=== PATIENT | female | born 1975 | race Caucasian/White ===

== ENCOUNTER 2019-10-06 12:27 | Outpatient (CLI) | payer BC, SELFPAY ==
--- NOTE | 2019-10-10 14:27 | WPDPFTINT ---
PFT Interpretation PFT Interpretation: This PFT met all criteria for ATS standards and reproducibility FEV/FVC 78%, no bronchodilator challenge was given FEV1 109% FVC 109% TLC 110% RV 108% RV/TLC 34% DLCO 86% when adjusted for alveolar volume but not adjusted for hemoglobin Flow volume loops were normal Impression: Normal PFT. Clinical correlation is advised.
== END 2019-10-06 12:28 | disposition home or self-care (01) ==
PROVIDERS: PCP Nurse Practitioner Adult Health; Visit Provider Nurse Practitioner Adult Health
DX: F17.200 Nicotine dependence, unspecified, uncomplicated (principal)
CPT/HCPCS: 94375; 94726; 94729

== ENCOUNTER 2019-10-28 12:19 | Outpatient (CLI) | payer BC, SELFPAY ==
--- NOTE | ~2019-10-28 | MM_ITS ---
EXAMINATION: MM diagnostic gay BI w thomas HISTORY: Left breast pain TECHNIQUE: Additional 3-D tomosynthesis images of the left breast were performed and synthetic 2-D im ages were generated. CAD analysis was submitted and interpreted. COMPARISON: Comparison to multiple prior studies sequentially, with oldest reviewed study dated 02/2011. FINDINGS: Breast composed of scattered areas of fibroglandular density. Asymmetric density in the rig ht breast in the lower outer quadrant are stable. No new masses, calcifications or architectural dist ortion to suggest malignancy. IMPRESSION: 1. No mammographic evidence for malignancy in either breast. 2. Routine yearly screening mammogram and regular clinical breast examination are recommended. BI-RADS Category 1: Negative Reviewed, dictated and finalized at location A. IMPRESSION: 1. No mammographic evidence for malignancy in either breast. 2. Routine yearly screening mammogram and regular clinical breast examination a re recommended. BI-RADS Category 1: Negative
== END 2019-10-28 12:20 | disposition home or self-care (01) ==
LOC: ANHIMG 12:22
PROVIDERS: PCP Nurse Practitioner Adult Health; Visit Provider Nurse Practitioner
DX: N64.4 Mastodynia (principal)
CPT/HCPCS: 77062; 77066; G0279

== ENCOUNTER 2020-10-02 14:26 | Outpatient (CLI) | payer BC, SELFPAY | END 2020-10-02 14:27 | disposition home or self-care (01) | LOC: ANHCOVIDVC 14:26 | PROVIDERS: PCP Nurse Practitioner Adult Health | DX: Z23 Encounter for immunization (principal) | CPT/HCPCS: 0001A; 91300 ==

== ENCOUNTER 2020-10-23 13:43 | Outpatient (CLI) | payer BC, SELFPAY | END 2020-10-23 13:44 | disposition home or self-care (01) | LOC: ANHCOVIDVC 13:44 | PROVIDERS: PCP Nurse Practitioner Adult Health | DX: Z23 Encounter for immunization (principal) | CPT/HCPCS: 0002A; 91300 ==

== ENCOUNTER 2020-11-21 16:54 | Outpatient (CLI) | payer BC, SELFPAY ==
--- NOTE | ~2020-11-21 | MM_ITS ---
EXAMINATION: MM screening [facility] BI w thomas HISTORY: Screening TECHNIQUE: Craniocaudal and mediolateral oblique 3-D tomosynthesis images were obtained and synthetic 2-D images were generated. CAD analysis was submitted and interpreted. COMPARISON: Comparison to multiple prior studies sequentially, with oldest reviewed study dated 04/24. BREAST PARENCHYMAL COMPOSITION: There are scattered areas of fibroglandular density. FINDINGS: There is no evidence of suspicious mass, calcification, or architectural distortion to sugg est malignancy in either breast. There has been no suspicious interval change. IMPRESSION: 1. No mammographic evidence of malignancy. 2. Recommend routine screening mammography in one year. BI-RADS Category 1: Negative Reviewed, dictated and finalized at location A.
== END 2020-11-21 16:55 | disposition home or self-care (01) ==
PROVIDERS: PCP Nurse Practitioner Adult Health; Visit Provider Obstetrics & Gynecology Gynecology
DX: Z12.31 Encounter for screening mammogram for malignant neoplasm of breast (principal)
CPT/HCPCS: 77063; 77067

== ENCOUNTER → 2021-04-02 09:55 | Outpatient (CLI) | payer BC, SELFPAY ==
--- NOTE | ~2021-04-02 | US_ITS ---
EXAMINATION: US venous doppler [facility] DATE: 04/02/2021 10:35 INDICATION: Left lower limb pain TECHNIQUE: Grayscale ultrasound images without and with compression and Doppler ultrasound images of the left lower extremity veins were obtained. COMPARISON: None. FINDINGS: The visualized portions of left common femoral vein, profunda (deep) femoral vein, femoral vein, popl iteal vein, peroneal veins, posterior tibial veins, gastrocnemius vein and greater saphenous vein out flow are patent. A small patent and compressible superficial varicose vein is seen at the region of p ain. No abnormal masses or fluid collections identified at the region of concern. IMPRESSION: 1. No deep venous thrombosis in the left lower limb. Reviewed, dictated and finalized at location A.
== END ==
PROVIDERS: PCP Nurse Practitioner Adult Health; Visit Provider Nurse Practitioner Adult Health
DX: M79.605 Pain in left leg (principal)
CPT/HCPCS: 93971

== ENCOUNTER 2021-06-27 07:36 | Emergency (ER) | payer BC, SELFPAY ==
[2021-06-27] VITALS (9 sets, daily range): BP systolic 104–123; BP diastolic 65–86; PULSE 65–112; RESP 11–20; TEMP 36.6–37.1; O2SAT 100
[2021-06-27 08:25] LABS: Add Urine Microscopic? YES; Appearance Urine Clear (Clear); Bacteria Urine Trace /hpf; Bilirubin Urine Negative (Negative); Blood Urine 1+ (Negative); Color Urine Yellow (Yellow); Glucose Urine UA Negative (Negative); Ketones Urine Negative (Negative); Leukocyte Esterase Ur Trace LEU/UL (Negative); Mucus Urine Rare /lpf; Nitrate Urine Negative (Negative); Protein Urine Negative (Negative); Specific Grav Ur 1.017 (1.001-1.035); Squamous Epithelial Cell Urine Few /hpf (Few); Urobilinogen Urine Negative mg/dL (<2.0)
[2021-06-27 08:43] LABS: Basophils Percent Auto 0.3 % (0.2-1.2); Eosinophils Absolute Auto 0.1 K/mm3 (0-0.3); Eosinophils Percent Auto 0.5 % (0-4.4); Hematocrit 40.1 % (37.0-47.0); Hemoglobin 13.1 g/dL (12.0-15.0); Immature Granulocyte Absolute 0.05 K/mm3 (0.00-0.031); Immature Granulocyte Percent A 0.5 % (0-0.5); Lymphocytes Absolute Auto 0.94 K/mm3 (0.9-3.2); Lymphocytes Percent Auto 8.7 % (18.3-44.2); Mean Corpuscular HGB Conc 32.7 g/dl (32-36); Mean Corpuscular Hemoglobin 29.3 pg (26-34); Mean Corpuscular Volume 89.7 fl (80-100); Mean Platelet Volume 9.7 fl (7.4-10.4); Monocytes Absolute Auto 1.2 K/mm3 (0.1-0.6); Monocytes Percent Auto 11.4 % (2.6-8.5); Neutrophils Absolute Auto 8.5 K/mm3 (1.3-6.7); Neutrophils Percent Auto 78.6 % (45.5-73.1); Platelet Count Result 240 k/mm3 (150-375); Red Blood Count 4.47 M/mm3 (4.2-5.4); White Blood Count 10.8 K/mm3 (4.5-10.0)
[2021-06-27 08:51] LABS: Alanine Aminotransferase 14 U/L (4-35); Albumin Level 4.2 g/dL (3.5-5.1); Alkaline Phosphatase 60 U/L (38-126); Anion Gap 11 mmol/L (8-16); Aspartate Amino Transferase 19 U/L (14-36); Bilirubin,Total 0.4 mg/dL (0.2-1.3); Blood Urea Nitrogen 11 mg/dL (7-17); Calcium 9.5 mg/dL (8.4-10.2); Carbon Dioxide 25 mmol/L (22-30); Chloride 100 mmol/L (98-107); Estimated CRCL calculation 79 ml/min; Estimated Glomerular Filt Rate > 60; Glucose 100 mg/dL (65-110); Potassium 4.5 mmol/L (3.4-5.0); Sodium 136 mmol/L (137-145)
--- NOTE | 2021-06-27 11:42 | ED.GENADULT ---
HPI - General Adult General Chief complaint: Upper Respiratory Infection Stated complaint: fever,dizzy,chills,body aches Time Seen by Provider: 06/27/21 07:54 History of Present Illness HPI narrative: Patient is a 45-year-old female who presents ER with multiple complaints. Reports over the last 4 days she been having body aches and mild headache. She has had some achiness in her neck. She has had occasional dizziness when going from sitting to standing. She reports fever and chills. No known sick contacts. Reports she typically feels like this when she has UTI. No urinary frequency urgency. She has had some mild cough and shortness of breath with walking. Related Data Home Medications Medication Instructions Recorded Confirmed alprazolam 0.5 mg PO HS 06/27/21 06/27/21 omeprazole 20 mg PO DAILY 06/27/21 06/27/21 phentermine 37.5 mg PO DAILY 06/27/21 06/27/21 Allergies Allergy/AdvReac Type Severity Reaction Status Date / Time No Known Allergies Allergy Unverified 06/27/21 07:52 Review of Systems Constitutional: Constitutional: Reports chills, Reports fatigue and Reports fever(s) ENT: Denies nasal congestion and Denies sore throat Respiratory: Respiratory: Denies chest congestion, Reports cough, Reports dyspnea and Denies wheezing Gastrointestinal: Gastrointestinal: Denies abdominal pain, Denies nausea and Denies vomiting Genitourinary: Genitourinary: Denies hematuria, Denies nocturia and Denies dysuria PMFSH Past Medical History Medical History (Updated 06/27/21 @ 12:13 by Mahamed Maya MD) Anxiety Surgical History Surgical History (Updated 06/27/21 @ 11:44 by Mahamed Maya MD) History of tonsillectomy Social History Social History (Updated 06/27/21 @ 11:44 by Mahamed Maya MD) Smoking status: Never smoker Exam Narrative: GENERAL: Well-appearing, well-nourished, and in no acute distress. HEAD: Normocephalic, atraumatic. NECK: Supple. FROM without meningismus. CHEST: Clear to auscultation. No respiratory distress. HEART: Regular rate and rhythm. Normal peripheral pulses. ABDOMEN: Soft, nontender, nondistended. EXTREMITIES: Normal range of motion. No edema. NEURO: Alert and oriented x3. PSYCH: Normal mood and affect. Course Course Emergency Course: Put patient on short course of antibiotics for UTI. Normal orthostatics. Patient also swabbed for Covid. Discharge home. Vital Signs Vital signs: Vital Signs Temperature 98.7 F 06/27/21 07:41 Pulse Rate 91 06/27/21 07:41 Respiratory Rate 20 06/27/21 07:41 Blood Pressure 123/71 06/27/21 07:41 Pulse Oximetry 100 06/27/21 07:41 Temperature 98.7 F 06/27/21 07:41 Pulse Rate 67 06/27/21 10:44 Respiratory Rate 13 06/27/21 10:44 Blood Pressure 104/65 06/27/21 10:44 Pulse Oximetry 100 06/27/21 10:44 Medical Decision Making Vital Signs Vital Signs: Vital Signs Temperature 98.7 F 06/27/21 07:41 Pulse Rate 91 06/27/21 07:41 Respiratory Rate 20 06/27/21 07:41 Blood Pressure 123/71 06/27/21 07:41 Pulse Oximetry 100 06/27/21 07:41 Temperature 98.7 F 06/27/21 07:41 Pulse Rate 67 06/27/21 10:44 Respiratory Rate 13 06/27/21 10:44 Blood Pressure 104/65 06/27/21 10:44 Pulse Oximetry 100 06/27/21 10:44 Lab Data Result diagrams: 06/27/21 08:26 06/27/21 08:26 Labs: Lab Results 06/27/21 06/27/21 06/27/21 Range/Units 08:06 08:26 08:26 WBC 10.8 H (4.5-10.0) K/mm3 RBC 4.47 (4.2-5.4) M/mm3 Hgb 13.1 (12.0-15.0) g/dL Hct 40.1 (37.0-47.0) % MCV 89.7 (80-100) fl MCH 29.3 (26-34) pg MCHC 32.7 (32-36) g/dl RDW 13.0 (11.5-14.5) % Plt Count 240 (150-375) k/mm3 MPV 9.7 (7.4-10.4) fl Immature Gran % (Auto) 0.5 (0-0.5) % Neut % (Auto) 78.6 H (45.5-73.1) % Lymph % (Auto) 8.7 L (18.3-44.2) % Shannon % (Auto) 11.4 H (2.6-8.5) % Eos % (Auto) 0.5 (0-4.4) % Ba
[2021-06-27 20:49] LABS: SARS-CoV-2 RNA PCR Negative
== END 2021-06-27 12:25 | disposition home or self-care (01) ==
PROVIDERS: Emergency Provider Emergency Medicine; PCP Nurse Practitioner Adult Health
DX: N39.0 Urinary tract infection, site not specified (principal); Z20.822 Contact with and (suspected) exposure to COVID-19; F41.9 Anxiety disorder, unspecified
CPT/HCPCS: 36415; 80053; 81001; 85025; 87077; 87086; 87186; 99283; C9803; U0003; U0005

== ENCOUNTER 2022-01-16 07:34 | Outpatient (CLI) | payer BC, SELFPAY ==
--- NOTE | ~2022-01-16 | MM_ITS ---
EXAMINATION: MM screening gay BI w thomas HISTORY: Screening mammogram TECHNIQUE: Craniocaudal and mediolateral oblique 3-D tomosynthesis images were obtained and synthetic 2-D images were generated. CAD analysis was submitted and interpreted. COMPARISON: 11/21/2020 bilateral screening mammogram 10/28/2019 bilateral diagnostic mammogram BREAST PARENCHYMAL COMPOSITION: There are scattered areas of fibroglandular density. FINDINGS: Grouped microcalcifications are noted in the upper outer quadrant of left breast breast, of particular concern because of linear branching configuration of the mammographic calcifications (MLO Tomosynthesis image 12/50). Differential diagnosis includes arterial calcification. There is a linear array of subtle microcalcifications in the outer mid right breast, also of concern (MLO Tomosynthesis image 13/51). Bilateral diagnostic mammography is recommended, with ultrasound as well. IMPRESSION: 1. Grouped microcalcifications in the upper-outer quadrant left breast and outer mid right breast 2. Bilateral diagnostic mammography and breast ultrasound examination are recommended. BI-RADS Category 0: Incomplete: Needs additional imaging evaluation. Reviewed, dictated and finalized at location A. IMPRESSION: 1. Grouped microcalcifications in the upper-outer quadrant left breast and oute r mid right breast 2. Bilateral diagnostic mammography and breast ultrasound examination are recom mended. BI-RADS Category 0: Incomplete: Needs additional imaging evaluation.
== END 2022-01-16 07:35 | disposition home or self-care (01) ==
LOC: ANHIMG 07:36
PROVIDERS: PCP Nurse Practitioner Adult Health; Visit Provider Obstetrics & Gynecology Gynecology
DX: Z12.31 Encounter for screening mammogram for malignant neoplasm of breast (principal); R92.8 Other abnormal and inconclusive findings on diagnostic imaging of breast
CPT/HCPCS: 77063; 77067

== ENCOUNTER 2022-01-29 11:54 | Outpatient (CLI) | payer BC, SELFPAY ==
--- NOTE | ~2022-01-29 | MM_ITS ---
EXAMINATION: MM diagnostic gay BI w thomas HISTORY: Indeterminate bilateral breast calcifications on screening mammogram TECHNIQUE: Magnification views of the breasts were performed. CAD analysis was submitted and interpre jabier. COMPARISON: 01/16/2022, 11/21/2020, 10/28/2019, 12/09/2016, 11/25/2016 BREAST PARENCHYMAL COMPOSITION: There are scattered areas of fibroglandular density. FINDINGS: Left breast: There are grouped fine pleomorphic calcifications in the posterior third of the upper ou ter quadrant of the breast at the 1:00 location 10 cm from the nipple. No definite associated mass is identified. Right breast: There are grouped calcifications in the posterior third of the outer breast at the 9:00 location 11 cm from the nipple which appear to be round in morphology. IMPRESSION: 1. Indeterminate left breast calcifications. Stereotactic biopsy is recommended. 2. Probably benign right breast calcifications. Follow-up right diagnostic mammogram in six months is recommended. BI-RADS category 4, suspicious findings. Reviewed, dictated and finalized at location A. IMPRESSION: 1. Indeterminate left breast calcifications. Stereotactic biopsy is recommended . 2. Probably benign right breast calcifications. Follow-up right diagnostic mamm ogram in six months is recommended. BI-RADS category 4, suspicious findings.
== END 2022-01-29 11:55 | disposition home or self-care (01) ==
PROVIDERS: PCP Nurse Practitioner Adult Health; Visit Provider Obstetrics & Gynecology Gynecology
DX: R92.8 Other abnormal and inconclusive findings on diagnostic imaging of breast (principal)
CPT/HCPCS: 77062; 77066; G0279

== ENCOUNTER 2022-03-07 11:02 | Outpatient (CLI) | payer BC, SELFPAY ==
--- NOTE | ~2022-03-07 | MM_ITS ---
EXAMINATION: MM stereotactic bx LT, MM post biopsy diagnostic LT, MM stereotactic specimen LT, Specim en Radiograph, Tissue Marker Clip Placement, Unilateral Mammogram DATE: 03/07/2022 12:52 (accession [id number]), 03/07/2022 12:51 (accession [id number]), 03/07 12:50 (accession [id number]) INDICATION: Abnormal mammogram: Fine pleomorphic grouped microcalcifications in the posterior third o f upper outer left breast at 1:00 10 cm from nipple. TECHNIQUE AND FINDINGS: The risks and potential benefits of the procedure were discussed with the patient and written informe d consent was obtained. Timeout procedure was performed. The patient was placed in the prone position on the dedicated stereotactic table with the left breast in craniocaudal compression, and the area o f interest was localized and targeted utilizing digital imaging with stereotaxis. After sterile preparation of the skin, 1% lidocaine was utilized for local anesthesia at the skin pun cture site and 1% lidocaine with epinephrine was utilized for deeper local anesthesia/is about the bi opsy site. A [employer] vacuum assisted biopsy needle was advanced to the level of the calcification o f interest from a cephalad approach utilizing stereotactic guidance and a total of 12 tissue core bio psies were obtained. A specimen radiograph demonstrates that the calcifications of interest are included within the tissue cores. A tissue marker clip was then placed at the biopsy site. A digital mammographic exposure co nfirmed the successful deployment of the biopsy marker. The needle was removed and hemostasis was ac hieved. A sterile bandage was applied. The patient tolerated the procedure well and there is no aisha dence of significant immediate complication. The patient was given verbal as well as written postpro cedural instructions prior to discharge from the department. Tissue cores were submitted to surgical pathology for histologic analysis. A 2-view left unilateral digital mammogram was obtained post procedure, demonstrating the tissue daylin er clip in expected position. IMPRESSION: 1. Successful stereotactic biopsy of grouped microcalcifications in posterior third of upper outer left breast, followed by tissue marker clip placement. Please refer to pathology report for histolog ic analysis. Reviewed, dictated and finalized at Location A. Reviewed, dictated and finalized at location A. IMPRESSION: 1. Successful stereotactic biopsy of grouped microcalcifications in posterior third of upper outer left breast, followed by tissue marker clip placement. P lease refer to pathology report for histologic analysis. IMPRESSION: 1. Successful stereotactic biopsy of grouped microcalcifications in posterior third of upper outer left breast, followed by tissue marker clip placement. P lease refer to pathology report for histologic analysis.
== END 2022-03-07 11:03 | disposition home or self-care (01) ==
PROVIDERS: PCP Nurse Practitioner Adult Health; Visit Provider Surgery
DX: R92.1 Mammographic calcification found on diagnostic imaging of breast (principal)
CPT/HCPCS: 19081; 77065; 88305; A4648

== ENCOUNTER 2022-09-05 13:23 | Outpatient (CLI) | payer BC, SELFPAY ==
--- NOTE | ~2022-09-05 | MMUS_ITS ---
MM diagnostic gay BI w thomas, US breast RT complete DATE: 09/05/2022 14:01 (accession [id number]), 09/05/2022 15:20 (accession [id number]) INDICATION: Six-month follow-up of pleomorphic calcifications in posterior mid outer right breast TECHNIQUE: Digital ML, MLO and CC Tomosynthesis views of both breasts. Magnification views of right b reast computer-aided detection was performed and reviewed. COMPARISON: 01/29/2022 bilateral diagnostic mammogram Breast protocol composition: There are scattered areas of fibroglandular density. MAMMOGRAM FINDINGS: As biopsy marker in the upper outer quadrant of the left breast; history of prior benign stereotactic biopsy of microcalcifications. There are some indeterminate grouped granular microcalcifications in linear array in the posterior ou ter mid right breast. The linear distribution is of concern. Stereotactic biopsy is recommended. No suspicious mass, architectural distortion, malignant calcification, skin thickening or retraction of either breast is noted otherwise. ULTRASOUND FINDINGS: Right breast 11:00 6 cm from nipple: Parallel circumscribed hypoechoic 5 x 4 x 5 mm solid lesion with out internal vascularity or posterior shadowing IMPRESSION: Indeterminate granular grouped microcalcifications in the posterior upper outer right larry ast. Stereotactic biopsy is recommended. Recommendation: Stereotactic biopsy of right breast microcalcifications BI-RADS Category 4: Suspicious abnormality; biopsy should be considered Reviewed, dictated and finalized at Location A. Reviewed, dictated and finalized at location A. IMPRESSION: Indeterminate granular grouped microcalcifications in the posterior upper outer right breast. Stereotactic biopsy is recommended. Recommendation: Stereotactic biopsy of right breast microcalcifications BI-RADS Category 4: Suspicious abnormality; biopsy should be considered
== END 2022-09-05 13:24 | disposition home or self-care (01) ==
PROVIDERS: PCP Nurse Practitioner Adult Health; Visit Provider Surgery
DX: R92.8 Other abnormal and inconclusive findings on diagnostic imaging of breast (principal)
CPT/HCPCS: 76641; 77062; 77066; G0279

== ENCOUNTER 2022-10-01 10:25 | Outpatient (CLI) | payer BC, SELFPAY ==
--- NOTE | ~2022-10-01 | MM_ITS ---
EXAMINATION: MM stereotactic bx RT, MM post biopsy diagnostic RT, MM stereotactic specimen RT, Specim en Radiograph, Tissue Marker Clip Placement, Unilateral Mammogram DATE: 10/01/2022 12:29 (accession [id number]), 10/01/2022 12:26 (accession [id number]), 10/01 12:25 (accession [id number]) INDICATION: Abnormal mammogram: Indeterminate grouped microcalcifications in the posterior upper oute r right breast. TECHNIQUE AND FINDINGS: The risks and potential benefits of the procedure were discussed with the patient and written informe d consent was obtained. Timeout procedure was performed. The patient was placed in the prone position on the dedicated stereotactic table with the left breast in lateral medial compression, and the area of interest was localized and targeted utilizing digital imaging with stereotaxis. After sterile preparation of the skin, 1% lidocaine was utilized for local anesthesia at the skin pun cture site and 1% lidocaine with epinephrine was utilized for deeper local anesthesia/is about the bi opsy site. A [employer] vacuum assisted biopsy needle was advanced to the level of the calcification o f interest from a lateral approach utilizing stereotactic guidance and a total of 12 tissue core biop sies were obtained. A specimen radiograph demonstrates that the calcifications of interest are included within the tissue cores. A tissue marker clip was then placed at the biopsy site. A digital mammographic exposure co nfirmed the successful deployment of the biopsy marker. The needle was removed and hemostasis was ac hieved. A sterile bandage was applied. The patient tolerated the procedure well and there is no aisha dence of significant immediate complication. The patient was given verbal as well as written postpro cedural instructions prior to discharge from the department. Tissue cores were submitted to surgical pathology for histologic analysis. A 2-view right unilateral digital mammogram was obtained post procedure, demonstrating the tissue mar ker clip in expected position. IMPRESSION: 1. Successful stereotactic biopsy of posterior upper outer quadrant grouped microcalcifications, fo llowed by tissue marker clip placement. Please refer to pathology report for histologic analysis. Reviewed, dictated and finalized at Location A. Reviewed, dictated and finalized at location A. IMPRESSION: 1. Successful stereotactic biopsy of posterior upper outer quadrant grouped m icrocalcifications, followed by tissue marker clip placement. Please refer to pathology report for histologic analysis. IMPRESSION: 1. Successful stereotactic biopsy of posterior upper outer quadrant grouped m icrocalcifications, followed by tissue marker clip placement. Please refer to pathology report for histologic analysis.
== END 2022-10-01 10:26 | disposition home or self-care (01) ==
PROVIDERS: PCP Nurse Practitioner Adult Health; Visit Provider Surgery
DX: R92.8 Other abnormal and inconclusive findings on diagnostic imaging of breast (principal)
CPT/HCPCS: 19081; 77065; 88305; A4648

== ENCOUNTER 2023-05-22 08:12 | Outpatient (CLI) | payer BC, SELFPAY ==
[2023-05-22 19:17] LABS: Hemoglobin 14.4 g/dL (12.0-15.0); Mean Corpuscular HGB Conc 31.3 g/dl (32-36); Mean Corpuscular Hemoglobin 29.1 pg (26-34); Mean Corpuscular Volume 93.1 fl (80-100); Mean Platelet Volume 10.8 fl (7.4-10.4); Platelet Count Result 312 k/mm3 (150-375); Red Blood Count 4.94 M/mm3 (4.2-5.4); White Blood Count 8.7 K/mm3 (4.5-10.0)
[2023-05-22 19:41] LABS: Appearance Urine Cloudy (Clear); Bacteria Urine 4+ /hpf; Bilirubin Urine Negative (Negative); Blood Urine Negative (Negative); Color Urine Yellow (Yellow); Glucose Urine UA Negative (Negative); Ketones Urine Negative (Negative); Leukocyte Esterase Ur 1+ LEU/UL (NEGATIVE); Nitrate Urine Positive (Negative); Non Pathogenic Casts 0-2; Protein Urine Negative (Negative); RBC Urine 0-2 /hpf (0-2); Specific Grav Ur 1.018 (1.001-1.035); Squamous Epithelial Cell Urine None seen /hpf (Few); Urobilinogen Urine 0.2 mg/dL (<2.0); WBC Urine 21-50 /hpf (0-3); pH Urine 6.5 (5.0-9.0)
[2023-05-22 19:45] LABS: Add Urine Microscopic? YES
[2023-05-22 19:56] LABS: Anion Gap 9 mmol/L (8-16); Blood Urea Nitrogen 18 mg/dL (7-17); Calcium 9.4 mg/dL (8.4-10.2); Carbon Dioxide 25 mmol/L (22-30); Chloride 104 mmol/L (98-107); Estimated Glomerular Filt Rate > 60; Glucose 70 mg/dL (65-110); Potassium 4.6 mmol/L (3.4-5.0); Sodium 138 mmol/L (137-145)
[2023-05-22 20:14] LABS: Vitamin D 25 Hydroxy 39.8 ng/mL
== END 2023-05-22 08:13 | disposition home or self-care (01) ==
LOC: ANHBWCLAB 08:14
PROVIDERS: PCP Nurse Practitioner Adult Health; Visit Provider Nurse Practitioner Adult Health
DX: E87.5 Hyperkalemia (principal); R39.9 Unspecified symptoms and signs involving the genitourinary system; E55.9 Vitamin D deficiency, unspecified; Z13.9 Encounter for screening, unspecified
CPT/HCPCS: 36415; 80048; 81001; 82306; 85027

== ENCOUNTER 2023-09-22 11:26 | Emergency (ER) | payer BC, SELFPAY ==
[2023-09-22 12:12] VITALS: BP 137/93; PULSE 80; RESP 16; TEMP 36.7; O2SAT 97
--- NOTE | 2023-09-22 12:24 | PC.NURSE ---
COVID/Flu/RSV swab collected and sent to lab
[2023-09-22 13:04] LABS: Influenza A QL RT-PCR Negative (Negative); Influenza B QL RT-PCR Negative (Negative); RSV RNA, RT-PCR Negative (Negative); SARS-CoV-2 RNA PCR Negative (Negative)
--- NOTE | 2023-09-22 14:22 | ED.GENADULT ---
HPI - General Adult General Chief complaint: Unspecified Stated complaint: not feeling well Time Seen by Provider: 09/22/23 13:22 Source: patient Mode of arrival: ambulatory Limitations: no limitations History of Present Illness HPI narrative: 48-year-old with a history of anxiety here with complaints of sore throat, not feeling well, swollen glands since yesterday. Patient thinks that she is dying. She denies any fever no history of cough or shortness of breath Onset (ago): day(s) (1) Location: neck Severity: mild Quality: aching Pain Consistency: constant Relieving factors: none Exacerbating factors: none Associated symptoms: denies other symptoms Related Data Allergies Allergy/AdvReac Type Severity Reaction Status Date / Time No Known Allergies Allergy Verified 09/22/23 12:26 Review of Systems Review of Systems: All systems reviewed & are unremarkable except as noted in HPI and below Constitutional: Constitutional: Reports no additional constitutional complaints Eyes: Eyes: Reports no additional eye complaints ENT: Reports system reviewed and no additional complaints, except as documented Cardiovascular: Cardiovascular: Reports no additional cardiovascular complaints Respiratory: Respiratory: Reports no additional respiratory complaints Musculoskeletal: Musculoskeletal: Reports no additional musculoskeletal complaints Neurologic: Reports system reviewed and no additional complaints, except as documented [facility] Past Medical History Medical History Anxiety BCC (basal cell carcinoma), face Surgical History Surgical History History of tonsillectomy Family History Family History Father Hypertension Diabetes mellitus Mother Breast cancer Unknown Diabetes mellitus Cerebrovascular accident Hypertension Cancer Grandparent Cerebrovascular accident Grandparent Heart disease Social History Social History (Updated 05/22/23 @ 07:22 by Opal Silva MA) Smoking packs per day: 1 Smoking cigarettes per day: 20.0 Years smoked: 28 Smoking pack-years: 28.00 Smoking status: Former smoker Tobacco type: cigarettes Alcohol intake: current Alcohol use details: Once a month if that Substance use: never Lack of Transportation: No Lack of Food: Never True Current Housing: I Have Housing Concerned About Future Housing: No Difficulty Paying Gas/Electric Bills: No Difficulty Paying for Meds: No Currently Unemployed: No Education: High School Diploma/GED Difficulty w/ Childcare or Family Care: No Living arrangements: with family Gender identity (if verbalized by the patient): Female Spiritual care concerns: No Agree to blood products: Yes Exam Narrative: GENERAL: Well-appearing, well-nourished, and in no acute distress. HEAD: Normocephalic, atraumatic. EYES: PERRLA and EOMI. ENT: Nares clear, no rhinorrhea or epistaxis. Mucous membranes moist. NECK: Supple. CHEST: Clear to auscultation. No respiratory distress. HEART: Regular rate and rhythm. No murmur heard. Normal peripheral pulses. ABDOMEN: Soft, nontender, nondistended, normal active bowel sounds. EXTREMITIES: Normal range of motion. No edema. SKIN: Warm, dry, no rash. NEURO: No focal deficits. Alert and oriented x3. PSYCH: Normal mood and affect. Course Course Emergency Course: Informed patient abouther lab work , advised conservative management Vital Signs Vital signs: Vital Signs Temperature 36.7 C 09/22/23 12:12 Pulse Rate 80 09/22/23 12:12 Respiratory Rate 16 09/22/23 12:12 Blood Pressure 137/93 H 09/22/23 12:12 Pulse Oximetry 97 09/22/23 12:12 Oxygen Delivery Room Air 09/22/23 12:12 Temperature 36.7 C 09/22/23 12:12 Pulse Rate 80 09/22/23 12:12 Respiratory Rate 16
== END 2023-09-22 14:38 | disposition home or self-care (01) ==
PROVIDERS: Emergency Provider Family Medicine; PCP Nurse Practitioner Adult Health
DX: B34.9 Viral infection, unspecified (principal); F41.9 Anxiety disorder, unspecified; Z20.822 Contact with and (suspected) exposure to COVID-19; Z85.828 Personal history of other malignant neoplasm of skin; Z87.891 Personal history of nicotine dependence
CPT/HCPCS: 87637; 99283

== ENCOUNTER 2023-09-22 17:28 | Emergency (ER) | payer BC, SELFPAY ==
[2023-09-22 17:37] VITALS: BP 132/53; PULSE 100; RESP 18; TEMP 36.8; O2SAT 98
--- NOTE | 2023-09-22 19:56 | ED.GENADULT ---
HPI - General Adult General Chief complaint: Skin/Abscess/Foreign Body <Francisco J Beckford PA-C - Last Filed: 09/23/23 02:03> Stated complaint: hives <DORINA Bowser Last Filed: 09/23/23 02:03> Time Seen by Provider: 09/22/23 18:47 <DORINA Bowser Last Filed: 09/23/23 02:03> Source: patient <DORINA Bowser Last Filed: 09/23/23 02:03> Mode of arrival: ambulatory <DORINA Bowser Last Filed: 09/23/23 02:03> Limitations: no limitations <DORINA Bowser Last Filed: 09/23/23 02:03> History of Present Illness HPI narrative: This is a 48-year-old female with PMH of anxiety, HLD who presents to the ED with chief complaint of rash and swelling beginning earlier this morning. Patient reports that she has been having some sore throat and feeling unwell the last few days. She was seen here earlier today diagnosed with viral syndrome. Patient states that after being discharged she continued to not feel well started noticing hives to abdomen and extremities. Reports that she also started to notice some swelling of the lips and chin. She states that this all started around 930 this morning and worsened after she took a nap woke up around 4:30 p.m. Denies troubles swallowing, shortness of breath, drooling, fevers, chills, chest pain, leg swelling, abdominal pain, nausea, vomiting. Denies any known sick contacts. Denies any change or increase in her medications. She has not taken any new meds for this viral illness. Denies any known allergies. <DORINA Bowser Last Filed: 09/23/23 02:03> Related Data Allergies/adverse reactions: Allergies Allergy/AdvReac Type Severity Reaction Status Date / Time No Known Allergies Allergy Verified 09/22/23 17:40 <DORINA Bowser Last Filed: 09/23/23 02:03> Review of Systems Review of Systems: All systems as dictated in HPI <Francisco J Beckford PA-C - Last Filed: 09/23/23 02:03> [facility] Past Medical History Medical History: Medical History (Reviewed 02/25/23 @ 08:14 by Cris Christianson [facility]) Anxiety BCC (basal cell carcinoma), face <DORINA Bowser Last Filed: 09/23/23 02:03> Surgical History Surgical History: Surgical History (Reviewed 02/25/23 @ 08:14 by Cris Christianson [facility]) History of tonsillectomy <DORINA Bowser Last Filed: 09/23/23 02:03> Family History Family History: Family History (Reviewed 02/25/23 @ 08:14 by Cris Christianson [facility]) Father Hypertension Diabetes mellitus Mother Breast cancer Unknown Diabetes mellitus Cerebrovascular accident Hypertension Cancer Grandparent Cerebrovascular accident Grandparent Heart disease <Francisco J Beckford PA-C - Last Filed: 09/23/23 02:03> Social History Social History: Social History (Updated 05/22/23 @ 07:22 by Opal Silva MA) Smoking packs per day: 1 Smoking cigarettes per day: 20.0 Years smoked: 28 Smoking pack-years: 28.00 Smoking status: Former smoker Tobacco type: cigarettes Alcohol intake: current Alcohol use details: Once a month if that Substance use: never Lack of Transportation: No Lack of Food: Never True Current Housing: I Have Housing Concerned About Future Housing: No Difficulty Paying Gas/Electric Bills: No Difficulty Paying for Meds: No Currently Unemployed: No Education: High School Diploma/GED Difficulty w/ Childcare or Family Care: No Living arrangements: with family Gender identity (if verbalized by the patient): Female Spiritual care concerns: No Agree to blood products: Yes <DORINA Bowser Last Filed: 09/23/23 02:03> Exam Narrative: GENERAL: Well-appearing, well-nourished, and in no acute distress. HEAD: Normocephalic, atraumatic. EYES: PERRLA and EOMI. Mild eyelid swelling bilaterally. ENT: Mild lower lip swelling. No uvula swelling. Airway intact. No drooling. Nares clear, no rhinorrhea or epista
[2023-09-22] MEDS: methylPREDNISolone SOD SUCC 125 MG VIAL IV PUSH (20:27)
[2023-09-22] MEDS: diphenhydrAMINE HCl INJ 50 MG/ML VIAL IV PUSH (20:27)
[2023-09-22 20:41] LABS: Basophils Percent Auto 0.2 % (0.2-1.2); Eosinophils Percent Auto 0.3 % (0-4.4); Hemoglobin 13.6 g/dL (12.0-15.0); Immature Granulocyte Absolute 0.02 K/mm3 (0.00-0.031); Immature Granulocyte Percent A 0.2 % (0-0.5); Lymphocytes Absolute Auto 0.41 K/mm3 (0.9-3.2); Lymphocytes Percent Auto 4.2 % (18.3-44.2); Mean Corpuscular HGB Conc 32.4 g/dl (32-36); Mean Corpuscular Hemoglobin 29.1 pg (26-34); Mean Corpuscular Volume 89.7 fl (80-100); Mean Platelet Volume 10.1 fl (7.4-10.4); Monocytes Absolute Auto 0.7 K/mm3 (0.1-0.6); Monocytes Percent Auto 6.9 % (2.6-8.5); Neutrophils Absolute Auto 8.6 K/mm3 (1.3-6.7); Neutrophils Percent Auto 88.2 % (45.5-73.1); Platelet Count Result 268 k/mm3 (150-375); Red Blood Count 4.68 M/mm3 (4.2-5.4); Red Cell Distribution Width 13.2 % (11.5-14.5); White Blood Count 9.8 K/mm3 (4.5-10.0)
[2023-09-22 20:56] VITALS: BP 127/80; PULSE 69; RESP 12; O2SAT 97
[2023-09-22 21:07] LABS: Alanine Aminotransferase 16 U/L (6-35); Albumin Level 3.9 g/dL (3.5-5.1); Alkaline Phosphatase 52 U/L (38-126); Anion Gap 6 mmol/L (4-12); Aspartate Amino Transferase 25 U/L (14-36); Bilirubin,Total 0.7 mg/dL (0.2-1.3); Blood Urea Nitrogen 9 mg/dL (7-17); Calcium 9.1 mg/dL (8.4-10.2); Carbon Dioxide 24 mmol/L (22-30); Chloride 102 mmol/L (98-107); Estimated CRCL calculation 106 ml/min; Estimated Glomerular Filt Rate > 60; Glucose 101 mg/dL (65-110); Potassium 3.9 mmol/L (3.4-5.0); Sodium 132 mmol/L (137-145)
== END 2023-09-22 22:50 | disposition home or self-care (01) ==
PROVIDERS: Emergency Provider Physician Assistant; PCP Nurse Practitioner Adult Health
DX: T78.3XXA Angioneurotic edema, initial encounter (principal); B34.9 Viral infection, unspecified; E78.5 Hyperlipidemia, unspecified; Z85.828 Personal history of other malignant neoplasm of skin; Z87.891 Personal history of nicotine dependence
CPT/HCPCS: 36415; 80053; 85025; 87637; 96374; 96375; 99284; J1200; J2919

== ENCOUNTER 2024-02-02 15:45 | Outpatient (CLI) | payer BC, SELFPAY ==
--- NOTE | ~2024-02-02 | MM_ITS ---
EXAMINATION: MM screening gay BI w thomas HISTORY: Screening TECHNIQUE: Craniocaudal and mediolateral oblique 3-D tomosynthesis images were obtained and synthetic 2-D images were generated. CAD analysis was submitted and interpreted. COMPARISON: 11/25/2016 BREAST PARENCHYMAL COMPOSITION: Not dense: There are scattered areas of fibroglandular density. FINDINGS: There is no evidence of suspicious mass, calcification, or architectural distortion to sugg est malignancy in either breast. There has been no suspicious interval change. IMPRESSION: 1. No mammographic evidence of malignancy. 2. Recommend routine screening mammography in one year. BI-RADS Category 1: Negative Reviewed, dictated and finalized at location B.
== END 2024-02-02 15:46 | disposition home or self-care (01) ==
LOC: ANHIMG 15:47
PROVIDERS: PCP Nurse Practitioner Adult Health; Visit Provider Advanced Practice Midwife
DX: Z12.31 Encounter for screening mammogram for malignant neoplasm of breast (principal)
CPT/HCPCS: 77063; 77067

== ENCOUNTER 2024-03-09 09:20 | Outpatient (CLI) | payer BC, SELFPAY ==
[2024-03-09 18:48] LABS: Alanine Aminotransferase 28 U/L (6-35); Albumin Level 4.9 g/dL (3.5-5.1); Alkaline Phosphatase 61 U/L (38-126); Anion Gap 11 mmol/L (4-12); Aspartate Amino Transferase 56 U/L (14-36); Basophils Percent Auto 0.6 % (0.2-1.2); Bilirubin,Total 0.4 mg/dL (0.2-1.3); Blood Urea Nitrogen 13 mg/dL (7-17); Carbon Dioxide 26 mmol/L (22-30); Chloride 97 mmol/L (98-107); Cholesterol 159 mg/dL (0-200); Eosinophils Absolute Auto 0.2 K/mm3 (0-0.3); Eosinophils Percent Auto 2.4 % (0-4.4); Estimated Glomerular Filt Rate > 60; Glucose 76 mg/dL (65-110); HDL Direct 89 mg/dL; Hematocrit 49.2 % (37.0-47.0); Hemoglobin 15.5 g/dL (12.0-15.0); Immature Granulocyte Absolute 0.01 K/mm3 (0.00-0.031); Immature Granulocyte Percent A 0.1 % (0-0.5); Lymphocytes Absolute Auto 1.06 K/mm3 (0.9-3.2); Lymphocytes Percent Auto 14.8 % (18.3-44.2); Mean Corpuscular HGB Conc 31.5 g/dl (32-36); Mean Corpuscular Hemoglobin 29.5 pg (26-34); Mean Corpuscular Volume 93.5 fl (80-100); Mean Platelet Volume 10.7 fl (7.4-10.4); Monocytes Absolute Auto 0.9 K/mm3 (0.1-0.6); Neutrophils Percent Auto 70.1 % (45.5-73.1); Platelet Count Result 328 k/mm3 (150-375); Potassium 3.8 mmol/L (3.4-5.0); Red Blood Count 5.26 M/mm3 (4.2-5.4); Sodium 134 mmol/L (137-145); Triglycerides 154 mg/dL (<150); White Blood Count 7.1 K/mm3 (4.5-10.0)
[2024-03-09 18:58] LABS: LDL Cholesterol Direct 45 mg/dL
[2024-03-09 19:28] LABS: Vitamin D 25 Hydroxy 37.7 ng/mL
== END 2024-03-09 09:21 | disposition home or self-care (01) ==
LOC: ANHBWCLAB 09:21
PROVIDERS: PCP Nurse Practitioner Adult Health; Visit Provider Nurse Practitioner Adult Health
DX: E55.9 Vitamin D deficiency, unspecified (principal); Z13.9 Encounter for screening, unspecified
CPT/HCPCS: 36415; 80053; 80061; 82306; 84443; 85025

== ENCOUNTER 2025-02-22 08:15 | Outpatient (CLI) | payer OTHER, SELFPAY ==
--- OUTSIDE RECORDS SUMMARY | 2023-12-06 16:30 | XMS_ITS ---
Author Organization Formerly [facility] [place] ([address]) Address [address] [place] [address] Care Team Providers Care Oracle Technical Developer Name Role Phone Skye Rg Primary Care Provider Talia Isaura Moser Unavailable [phone] ZZ-Migration, Provider Unavailable Unavailab le REASON FOR VISIT [facility] Conversion Encounter Medications Medication SIG (Take, Route, Frequency, Duration) Notes Start Date End Date Status PIMECROLIMUS TOPICAL 1% 1 ANABELA APPLIED TOPICALLY 2 TIMES A DAY *Please review for potential replacement for e-prescription and drug interaction check* Active Doxycycline Hyclate 20 MG 1 tab(s) orally every 12 hours Active Clindamycin Phosphate 1% 1 ANABELA APPLIED TOPICALLY 2 TIMES A DAY *Please review and pick correct strength-formulatio n from Medispan options. If intended option is not shown, discontinue and re-order from Quick Search* Active Xanax 0.5 MG 1 tab(s) orally 3 times a day Active Ivermectin 1% *Please revie w and pick correct strength-formulatio n from Medispan options. If intended option is not shown, discontinue and re-order from Quick Search* Active Encounters Encounter Location Date Provider Diagnosis [facility] [place] [place] [address] 12/06/2023 Provider ZZ-Migration Plan Of Treatment No Information Progress Notes * Bianca DOMÍNGUEZDOSonny:1975 (49 yo F)Acc No.[id number]:12/06/2023 Patient: Bianca ESPINOSA Provider: Lolly Tang :1975 A ge:48 Y S ex:Female Date:12/06/2023 Address:[address] [place], [place] [id number] Pcp:Skye Boyd, ANP- Subjective: * Chief Complaints: * 1 . Mult[facility] To Medispan Conversion Encounter. * Medical History: * Medications: T aking PIMECROLIMUS TOPICAL 1% CREAM 1 ANABELA APPLIED TOPICALLY 2 TIMES A DAY , Notes to Pharmacist: *Please review for potential replacement for e-prescription and drug interaction check*, Taking Clindamycin Phosphate 1% KIT 1 ANABELA APPLIED TOPICALLY 2 TIMES A DAY , Notes to Pharmacist: *Please review and pick correct strength-formulation from Medispan options. If intended option is not shown, discontinue and re-order from Quick Search*, Taking Doxycycline Hyclate 20 MG Tablet 1 tab(s) orally every 12 hours , Taking Ivermectin , Notes to Pharmacist: 1% *Please review and pick correct strength-formulation from Medispan options. If intended option is not shown, discontinue and re-order from Quick Search*, Taking Xanax 0.5 MG Tablet 1 tab(s) orally 3 times a day Objective: * Vitals: Assessment: Plan: * Treatment: * Billing Information: * Visit Code: * Procedure Codes: * Electronic signature of Paola CHAVES-Migration on 02/22/2025 at 08:17 AM CDT Sign off status: Pending * Provider: Lolly Tang Date: 12/06/2023 Generated for Kathryn izaguirre/Henok/Jenniefrsmkg on: 02/22/2025 08:17 AM CDT
--- OUTSIDE RECORDS SUMMARY | 2024-06-02 09:20 | XMS_ITS ---
Author Organization [facility] Address [address] [place], [place] [id number] Care Team Providers Care Software Configuration Manager Name Role Phone Swathi Nascimento Unavailable [phone] Allergies No Known Allergies REASON FOR VISIT 48 y.o F presents with a possible UTI. AC1 Medications Medication SIG (Take, Route, Fr equency, Duration) Notes Start Date End Date Status Macrobid macrocrystals-monohydrat e 100 mg 1 cap(s) orally 2 times a day for 7 day(s) Active Xanax 0.5 mg 1 tab(s) orally 3 ti mes a day Active albuterol 90 mcg/inh 2 INH inhaled every 6 hours Active EpiPen 2-Inder 0.3 mg as directed intramus cularly once Active Social History Tobacco Use: Social History Observation Description Date Details (start date - stop date) Current Smoker NA - NA Smoking Question Answer Notes Patient is a current smoker Vital Signs Temperature 97.9 degrees Fahrenheit 06/02/20 24 Blood pressure systolic 140 mm Hg 06/02/20 24 Blood pressure diastolic 92 mm Hg 024 Heart Rate 98 /min 06/02/2024 Respiratory Rate 16 /min 06/02/2024 Height 66 in 06/02/2024 Weight 162 lbs 06/02/2024 BMI 26.14 kg/m2 06/02/2024 Oximetry 98 06/02/2024 Encounters Encounter Location Date Provider Diagnosis [facility] [address] [place], [place] [id number] 06/02/2024 Swathi BOWERS Urinary tract infection, site not specified N39.0 and Elevated blood-pressure reading, without diagnosis of hypertension R03.0 Assessments Encounter Date Diagnosis (ICD Code) Assessment Notes Treatment Notes Treatment Clinical Notes Section Notes 06/02/2024 Urinary tract infection, site not specified (ICD-10 - N39.0) Urinalysis in the office is positive. Accordingly I have discussed the pathophysiology of urinary tract infections with the patient. The patient denies any signs of fever or flank tenderness that would suggest pyelonephritis. We're initiating antibiotic therapy for acute cystitis and advised the patient that if symptoms persist or worsen and become suggestive of pyelonephritis she is to followup for reevaluation. 06/02/2024 Elevated blood-pressure reading, without diagnosis of hypertension (ICD-10 - R03.0) Blood pressure is elevated in the office today. The patient denies any cardiovascular symptoms today. Accordingly, it was agreed that the elevated BP is most problably due to the acute medical situation and that BP will be rechecked after resolution. If elevated BP persists, then evaluation and management of hypertension will be pursued. 06/02/2024 Other After a full discussion, the patient voiced an understanding of the risks, benefits, and alternatives to this treatment plan and accepted them. Plan Of Treatment Medication Medication Name Sig Start Date Stop Date Notes Macrobid macrocrystals-monohydrate 100 mg 1 cap(s) orally 2 times a day for 7 day(s) Treatment Notes Assessment Notes Urinary tract infection, sit e not specified Urinalysis in the office is positive. Accordingly I have discussed the pathophysiology of urinary tract infections with the patient. The patient denies any signs of fever or flank tenderness that would suggest pyelonephritis. We're initiating antibiotic therapy for acute cystitis and advised the patient that if symptoms persist or worsen and become suggestive of pyelonephritis she is to followup for reevaluation. Elevated blood-pressure read ing, without diagnosis of hypertension Blood pressure is elevated in the office today. The patient denies any cardiovascular symptoms today. Accordingly, it was agreed that the elevated BP is most problably due to the acute medical situation and that BP will be rechecked after resolution. If elevated BP persists, then evaluation and management of hypertension will be pursued. Other After a full discuss ion, the patient voiced an understanding of the risks, benefits, and alternatives to this treatment plan and accepted them. Next Appt Details Follow Up: prn, 2 - 3 Days, Reason: Procedure Notes * Category Sub-Category Detail Notes Education med-antibiotic Antibiotic medic ation prescription: The patient was advised that antibiotics are medications prescribed treat bacterial infections. They should be taken for the full course and as directed. Side effects can include the development of persistent strains of bacteria, GI upset, and interactions with other types of medications that could render the meds less effective, such as OCPs. Antibiotic use can also predispose a patient to develop fungal infections, or overgrowth of bacteria other than the one being treated. The patient voiced an understanding of risks, benefits and alternatives to taking the medicine as prescribed after this discussion and accepted them. Progress Notes * Bianca DOMÍNGUEZDOB:1975 (48 yo F)Acc No.[id number]:06/02/2024 Progress Note Patient: Bianca ESPINOSA Provider: ROBINSON Monteiro :1975 A ge:48 Y S ex:Female Date:06/02/2024 Address:[address] [place] [address], [address], [facility] Subjective: * Chief Complaints: * [age] y.o F presents with a possible UTI. AC1 * HPI: C onstitutional: This is a pleasant 48 yo female who presents with concerns of UTI. Patient reports 72 hour history of dysuria, urinary frequency and urgency. She denies flank pain, gross hematuria, or fever. She reports some increase vaginal discharge, and mild odor. She does note that she gets UTIs frequently after intercourse. Patient does note intercourse the day prior to the development of symptoms. She is here for evaluation and management. C onstitutional: After full discussion and inquiry into presenting symptoms, there are no other acute or constitutional complaints at this time. * ROS: P ositive findings per the patient: Notes S ee HPI findings above. E NT: Negative for h earing loss, ear pain, ringing in ears, nosebleeding. C ARDIOLOGY: Negative for c hest pain, angina, palpitations. ? G ASTROENTEROLOGY: Negative for d iarrhea, heartburn. A bdominal Pain n one. N ausea n one. V omiting n one. R ESPIRATORY: Negative for c ough, SOB, wheezing. U ROLOGY: Blood in Urine. U rinary Frequency y es. U rinary Urgency y es. D ysuria y es. C ONSTITUTIONAL: Negative for a cute distress, fever, chills, sweats, flank tenderness. * Medical History: * Surgical History: T NA * Hospitalization/Major Diagno stic Procedure: D enies Past Hospitalization * Family History: N o Family History documented.. * Social History: S usman Patient is a c urrent smoker * Medications: T akingEpiPen 2-Inder 0.3 mg kit as directed intramuscularly once albuterol 90 mcg/inh aerosol 2 INH inhaled every 6 hours Xanax 0.5 mg tablet 1 tab(s) orally 3 times a day Medication List reviewed and reconciled with the patientTaking EpiPen 2-Inder 0.3 mg kit as directed intramuscularly once Taking albuterol 90 mcg/inh aerosol 2 INH inhaled every 6 hours Taking Xanax 0.5 mg tablet 1 tab(s) orally 3 times a day Medication List reviewed and reconciled with the patient * Allergies: N .K.D.A.no[Allergies Verified] Objective: * Vitals: O 2Sat:98, HR:98, Temp:97.9, BP-right arm:140/92, Ht: 66, Wt: 162, Pain Scale: 2, RR: 16, BMI:26.14. * Physical Examination: G ENERAL: General Appearance: n o acute distress. H EART: PMI: n o thrills, normal. Rhythm: r egular. Murmurs: n one, no gallops, no rubs. Heart sounds: n ormal. Rate: r egular. Clicks: n o. L UNGS: Effort: n o respiratory distress. Rate: r egular. Airflow: n ormal air movement. Auscultation: C TA bilaterally, no wheezing, no rhonchi, no rales. A BDOMEN: General: s oft, nondistended, no masses, no peritoneal signs, no hepatosplenomegaly. Tenderness: s uprapubic pain. B ACK: Tenderness: n o CVA tenderness. M USCULOSKELETAL: Upper extremity joints f ull ROM, no clubbing, cyanosis or edema. Lower extremity joints: f ull ROM, normal gait and station, good stability, no clubbing, cyanosis or edema. Assessment: * Assessment: 1. U rinary tract infection, site not specified - N39.0 (Primary) 2 . E levated blood-pressure reading, without diagnosis of hypertension - R03.0 Plan: * Treatment: 2. E levated blood-pressure reading, without diagnosis of hypertension Notes: Blood pressure is elevated in the office today. The patient denies any cardiovascular symptoms today. Accordingly, it was agreed that the elevated BP is most problably due to the acute medical situation and that BP will be rechecked after resolution. If elevated BP persists, then evaluation and management of hypertension will be pursued. 3. O thers Notes: After a full discussion, the patient voiced an understanding of the risks, benefits, and alternatives to this treatment plan and accepted them. * Procedures: E ducation: med-antibiotic A ntibiotic medication prescription: The patient was advised that antibiotics are medications prescribed treat bacterial infections. They should be taken for the full course and as directed. Side effects can include the development of persistent strains of bacteria, GI upset, and interactions with other types of medications that could render the meds less effective, such as OCPs. Antibiotic use can also predispose a patient to develop fungal infections, or overgrowth of bacteria other than the one being treated. The patient voiced an understanding of risks, benefits and alternatives to taking the medicine as prescribed after this discussion and accepted them.. * Procedure Codes: * Follow Up: p velasquez, 2 - 3 Days * Images: * Sign off status: Completed true * Provider: ROBINSON Monteiro Date: 08/03/2023 Generated for Kathryn izaguirre/Henok/Mellisa on: 0 02/22/2025 07:18 AM MDT History and Physical Notes * HPI (History of Present Illness) Category Sub-Category Detail Notes Category Not es Constitutional After full di scussion and inquiry into presenting symptoms, there are no other acute or constitutional complaints at this time. Constitutional This is a ple asant 48 yo female who presents with concerns of UTI. Patient reports 72 hour history of dysuria, urinary frequency and urgency. She denies flank pain, gross hematuria, or fever. She reports some increase vaginal discharge, and mild odor. She does note that she gets UTIs frequently after intercourse. Patient does note intercourse the day prior to the development of symptoms. She is here for evaluation and management. Physical Examination Category Sub-Category Detail Notes Section Note s BACK Tenderness: no CVA tenderness HEART PMI: no thrills, normal Rhythm: regular Murmurs: none, no gallops, no rubs Heart sounds: normal Rate: regular Clicks: no ABDOMEN General: soft, nondistend ed, no masses, no peritoneal signs, no hepatosplenomegaly Tenderness: suprapubic pain MUSCULOSKELETAL Upper extremity joints full ROM, no clubbing, cyanosis or edema Lower extremity joints: full ROM, normal gait and station, good stability, no clubbing, cyanosis or edema GENERAL General Appearance: no acute distress LUNGS Effort: no respiratory distress Rate: regular Airflow: normal air movement Auscultation: CTA bilaterally, no wheezing, no rhonchi, no rales
--- OUTSIDE RECORDS SUMMARY | 2024-06-02 09:40 | XMS_ITS ---
Author Organization [facility] Address [address] [place], [place] [address] Care Team Providers Care Inbound Call Center Representative Name Role Phone Swathi Nascimento Unavailable [phone] ROSE MOLINA Unavailable [phone] Results Component Value Reference Range Notes Urine Culture, Routine Reviewed date:06/08/2024 08:22:23 AM Interpretation: Performing Lab:[facility], [address] [facility], Phone - [phone], Director - [facility] Notes/Report: Urine Culture, Routine Final report Result 1 Escherichia coli Cefazolin <=4 ug/mL Cefazolin with an LONDON <=16 predicts susceptibility to the oral agents cefaclor, cefdinir, cefpodoxime, cefprozil, cefuroxime, cephalexin, and loracarbef when used for therapy of uncomplicated urinary tract infections due to E. coli, Klebsiella pneumoniae, and Proteus mirabilis. Greater than 100,000 colony forming units per mL Antimicrobial Susceptibility S = Susceptible; I = Intermediate; R = Resistant P = Positive; N = Negative MICS are expressed in micrograms per mL Antibiotic RSLT#1 RSLT#2 RSLT#3 RSLT#4 Amoxicillin/Clavulanic Acid S Ampicillin S Cefepime S Ceftriaxone S Cefuroxime S Ciprofloxacin S Ertapenem S Gentamicin S Imipenem S Levofloxacin S Meropenem S Nitrofurantoin S Piperacillin/Tazobactam S Tetracycline S Tobramycin S Trimethoprim/Sulfa S REASON FOR VISIT UA - AC1 Medications Medication SIG (Take, Route, Fr equency, Duration) Notes Start Date End Date Status Xanax 0.5 mg 1 tab(s) orally 3 times a day Active albuterol 90 mcg/inh 2 INH inhaled every 6 hours Active EpiPen 2-Inder 0.3 mg as directed intramus cularly once Active Encounters Encounter Location Date Provider Diagnosis [facility] [address] [place], [place] [id number] 06/02/2024 ROSE MOLINA Dysuria R30.0 Assessments Encounter Date Diagnosis (ICD Code) Assessment Notes Treatment Notes Treatment Clinical Notes Section Notes 06/02/2024 Dysuria (ICD-10 - R30.0) Plan Of Treatment Next Appt Details Follow Up: prn, Reason: Progress Notes * Bianca DOMÍNGUEZDOB:1975 (48 yo F)Acc No.[id number]:06/02/2024 Progress Note Patient: Bianca ESPINOSA Provider: [facility] :1975 A ge:48 Y S ex:Female Date:06/02/2024 Address:[address] [place] [address], [address], [facility] Subjective: * Chief Complaints: * U A - AC1 * Medical History: * Medications: T akingEpiPen 2-Inder 0.3 mg kit as directed intramuscularly once albuterol 90 mcg/inh aerosol 2 INH inhaled every 6 hours Xanax 0.5 mg tablet 1 tab(s) orally 3 times a day Taking EpiPen 2-Inder 0.3 mg kit as directed intramuscularly once Taking albuterol 90 mcg/inh aerosol 2 INH inhaled every 6 hours Taking Xanax 0.5 mg tablet 1 tab(s) orally 3 times a day Objective: * Vitals: Assessment: * Assessment: 1. D ysuria - R30.0 (Primary) Plan: * Treatment: * Procedures: U rinalysis performed in the office: NIT: POS ASC: 10 mg/dl. * Procedure Codes: 8 1000 [id number] Specimen Processing * Follow Up: p rn * Images: * Sign off status: Completed true * Provider: [facility] Date: 08/03/2023 Generated for Kathryn izaguirre/Faxing/eTransmitting on: 0 02/22/2025 07:18 AM T
--- OUTSIDE RECORDS SUMMARY | 2024-06-08 03:22 | XMS_ITS ---
Author Organization [facility] Address [address] [place], [place] [id number] Care Team Providers Care Rib Knitter Name Role Phone Swathi Nascimento [phone] REASON FOR VISIT culture Encounters Encounter Location Date Provider Diagnosis [facility] [address] [place], [place] [id number] 06/08/2024 Swathi BOWERS Plan Of Treatment No Information Progress Notes * Bianca DOMÍNGUEZDOB:1975 (48 yo F)Acc No.[id number]:06/08/2024 Patient: Bianca ESPINOSA :1975 A ge:48 Y S ex:Female Address:[address], [place], [address] * true * Date: Generated for Kathryn izaguirre/Henok/eTransmitting on: 0 02/22/2025 07:18 AM MDT
--- NOTE | ~2025-02-22 | MM_ITS ---
EXAMINATION: MM screening gay BI w thomas HISTORY: Screening mammogram TECHNIQUE: Craniocaudal and mediolateral oblique 3-D tomosynthesis images were obtained and synthetic 2-D images were generated. CAD analysis was submitted and interpreted. COMPARISON: Mammograms from 01/16/2022 and 02/02/2024 BREAST PARENCHYMAL COMPOSITION: There are scattered areas of fibroglandular density. FINDINGS: RIGHT BREAST: There is an 11 mm asymmetry in the outer right breast, middle depth, seen in the right CC projection and a 11 mm focal asymmetry seen at the level of the posterior nipple line, posterior depth, seen in the right MLO projection. The findings are new as compared to the study from 2023. No s uspicious calcifications or architectural distortion. LEFT BREAST: There is a focal asymmetry in the left breast at the 11 to 12:00 position, posterior depth. No suspicious calcifications. IMPRESSION: 1. There is an 11 mm asymmetry in the outer right breast, middle depth, seen in the right CC projection and a 11 mm focal asymmetry seen at the level of the posterior nipple line, posterior depth, seen in the right MLO projection. The findings are new as compared to the study from 2023. The study is incomplete. A diagnostic right breast mammogram and a diagnostic right breast ultrasound is recommended. 2. There is a focal asymmetry in the left breast at the 11 to 12:00 position, posterior depth. The study is incomplete. A diagnostic left breast mammogram and a diagnostic left breast ultrasound is recommended. BI-RADS Category 0: Incomplete: Needs additional imaging evaluation. Reviewed, dictated and finalized at location Q. IMPRESSION: 1. There is an 11 mm asymmetry in the outer right breast, middle depth, seen in the right CC projection and a 11 mm focal asymmetry seen at the level of the p osterior nipple line, posterior depth, seen in the right MLO projection. The fi ndings are new as compared to the study from 2023. The study is incomplete. A d iagnostic right breast mammogram and a diagnostic right breast ultrasound is re commended. 2. There is a focal asymmetry in the left breast at the 11 to 12:00 position, p osterior depth. The study is incomplete. A diagnostic left breast mammogram and a diagnostic left breast ultrasound is recommended. BI-RADS Category 0: Incomplete: Needs additional imaging evaluation.
--- OUTSIDE RECORDS SUMMARY | 2025-02-22 08:18 | XMS_ITS | Patient Health Record ---
Author Organization [facility] Address [address] [place], [place] [id number] Care Team Providers Care Psychiatric Assistant Name Role Phone Swathi Nascimento Unavailable [phone] ROSE MOLINA Unavailable [phone] Allergies No Known Allergies Results Component Value Reference Range Notes Urine Culture, Routine Reviewed date:06/08/2024 08:22:23 AM Interpretation: Performing Lab:[facility], [address] [facility], Phone - [phone], Director - [facility] Notes/Report: Urine Culture, Routine Final report Result [...] S Tetracycline S Tobramycin S Trimethoprim/Sulfa S Reason For Referral No Information Medications Medication SIG (Take, Route, Fr equency, [...] Patient is a current smoker Vital Signs Heart Rate 98 /min 06/02/2024 Temperature 97.9 degrees Fahrenheit 06/02/2024 Respiratory Rate 16 /min 06/02/2024 Oximetry 98 06/02/2024 Blood pressure diastolic 92 mm Hg 06/02/2024 Height 66 in 06/02/2024 Blood pressure systolic 140 mm Hg 06/02/2024 Weight 162 lbs 06/02/2024 BMI 26.14 kg/m2 06/02/2024 Encounters Encounter Location Date Provider Diagnosis [facility] [address] [place] [phone] 06/02/2024 ROSE MOLINA Dysuria R30.0 [facility] [address] [place], [place] [phone] 06/08/2024 Swathi BOWERS [facility] [address] [facility] [address] [address] [place] [phone] 06/02/2024 Swathi BOWERS Urinary tract infection, site not specified N39.0 and Elevated blood-pressure reading, without diagnosis of hypertension R03.0 Assessments Encounter Date Diagnosis (ICD Code) Assessment Notes Treatment Notes Treatment Clinical Notes Section Notes 06/02/2024 Dysuria (ICD-10 - R30.0) 06/02/2024 Urinary tract infection, site not specified [...] plan and accepted them. Plan Of Treatment No Information Insurance Providers Payer Name Payer Address Payer Phone Subscriber Number Group Number Insured Name Patient Relationship to Insured Coverage Start Date Coverage End Date [address] [address] [id number] Bianca Domínguez Self - patient is the insured 6 Medical (General) History Medical History History ICD Code ANXIETY Surgical History Surgery Date(Month/Year) TNA
--- OUTSIDE RECORDS SUMMARY | 2025-02-22 08:18 | XMS_ITS | Patient Health Record ---
Author Organization [facility] ([address]) Address [address] [place] [address] Care Team Providers Care Account Resolution Expert Name Role Phone Skye Rg Primary Care Provider Isaura Coon Unavailable [phone] Allergies No Known Allergies Reason For Referral No Information Medications Medication SIG (Take, Route, Frequency, Duration) Notes Start Date End Date Status PIMECROLIMUS TOPICAL 1% 1 INEZ APPLIED TOPICALLY 2 TIMES A DAY *Please review for potential replacement for e-prescription and drug interaction check* Active CLINDAMYCIN TOPICAL 1% 1 inez applied topically 2 times a day Active Doxycycline Hyclate 20 MG 1 tab(s) orally every 12 hours Active Clindamycin Phosphate 1% 1 INEZ APPLIED TOPICALLY 2 TIMES A DAY *Please review and pick correct strength-formulatio n from [employer] options. If intended option is not shown, discontinue and re-order from Quick Search* Active Xanax 0.5 MG 1 tab(s) orally 3 times a day Active Ivermectin 1% *Please revie w and pick correct strength-formulatio n from [employer] options. If intended option is not shown, discontinue and re-order from Quick Search* Active XANAX 0.5 mg 1 tab(s) orally 3 times a day Active IVERMECTIN 1% Active DOXYCYCLINE 20 mg 1 tab(s) orally every 12 hours Active Social History Tobacco Use: Social History Observation Description Date Details (start date - stop date) Never Smoker NA - NA Tobacco Control (Standard) Question Answer Notes Tobacco use: Nonsmoker Problems Problem Type SNOMED Code ICD Code Onset Dates Problem Status W/U Status Risk Notes Problem Chronic allergic conjunctivitis (06998156) Other chronic allergic conjunctivitis (H10.45) Active confirmed Problem Allergic rhinitis (64533198) Other allergic rhinitis (J30.89) Active confirmed Plan Of Treatment No Information Insurance Providers Payer Name Payer Address Payer Phone Subscriber Number Group Number Insured Name Patient Relationship to Insured Coverage Start Date Coverage End Date [facility] [address] [place] [address] [id number] Ravi Domínguez Spouse - patient is the spouse of the insured 6 Medical (General) History Surgical History Surgery Date(Month/Year) Tonsillectomy 06/23/1999 Hospitalization History Reason Date(Month/Year)
== END 2025-02-22 08:16 | disposition home or self-care (01) ==
LOC: ANHFOHIMG 08:16
PROVIDERS: PCP Nurse Practitioner Adult Health; Visit Provider Obstetrics & Gynecology Gynecology
DX: Z12.31 Encounter for screening mammogram for malignant neoplasm of breast (principal); R92.8 Other abnormal and inconclusive findings on diagnostic imaging of breast
CPT/HCPCS: 77063; 77067

== ENCOUNTER 2025-03-07 10:29 | Outpatient (CLI) | payer OTHER, SELFPAY ==
--- NOTE | ~2025-03-07 | MMUS_ITS ---
EXAMINATION: US breast BI limited, MM diagnostic gay BI w thomas HISTORY: Indeterminate mammogram TECHNIQUE: [Additional images of both breasts were performed using full field digital mammography. 3-D tomosynthesis were also obtained and synthetic 2-D images were generated. CAD analysis was submitted and interpreted. High resolution bilateral breast ultrasound was performed.] ] COMPARISON: Mammograms from 02/02/2024 and 10/01/2022 BREAST PARENCHYMAL COMPOSITION: The breasts are extremely dense which lowers the sensitivity of mammography. FINDINGS: MAMMOGRAPHIC FINDINGS: Redemonstration of the 11 mm asymmetry in the outer right breast, middle depth, seen in the right cc projection. No sonographic correlate. The finding is probably benign. Redemonstration of 11 mm asymmetry seen at the level of the posterior nipple line, posterior depth, seen in the right MLO projection. No sonographic correlate. The finding is probably benign. Redemonstration of the focal asymmetry in the left breast 11:00 position posterior depth. No convincing sonographic correlate. The finding is probably benign. ULTRASOUND: There is a 3 x 3 x 2 mm wider than tall well-circumscribed hypoechoic cyst versus solid mass in the right breast at 10:00 position 5 cm from the nipple. No internal color Doppler flow. No posterior acoustic shadowing. The finding is probably benign. The finding is probably benign. There is a 1.2 x 0.3 x 0.7 cm wider than tall hypoechoic structure with an echogenic central region at the 2:00 position 3 cm from nipple possibly an intramammary lymph node. Margins are well-circumscribed. No internal color Doppler flow. No posterior acoustic shadowing. The finding is probably benign. There is a 7 x 4 x 3 mm wider than tall well-circumscribed hypoechoic cyst versus solid mass in the left breast at 2:00 position 2 cm in the middle depth. The finding is wider than tall. No internal color flow. No posterior acoustic shadowing. The finding is probably benign. No other cystic or solid mass identified in either breast. IMPRESSION/RECOMMENDATION: 1. Probably benign findings in both breasts. A bilateral diagnostic mammogram and a bilateral diagnostic breast ultrasound in 6 months is recommended. BI-RADS 3-Probably benign-Short interval follow-up suggested. Reviewed, dictated and finalized at location Q. IMPRESSION/RECOMMENDATION: 1. Probably benign findings in both breasts. A bilateral diagnostic mammogram a nd a bilateral diagnostic breast ultrasound in 6 months is recommended. BI-RADS 3-Probably benign-Short interval follow-up suggested. IMPRESSION/RECOMMENDATION: 1. Probably benign findings in both breasts. A bilateral diagnostic mammogram a nd a bilateral diagnostic breast ultrasound in 6 months is recommended. BI-RADS 3-Probably benign-Short interval follow-up suggested.
== END 2025-03-07 10:30 | disposition home or self-care (01) ==
LOC: ANHFOHIMG 10:30
PROVIDERS: PCP Nurse Practitioner Adult Health; Visit Provider Obstetrics & Gynecology Gynecology
DX: R92.8 Other abnormal and inconclusive findings on diagnostic imaging of breast (principal)
CPT/HCPCS: 76642; 77062; 77066; G0279